=== PATIENT | male | born 1985 | race Caucasian/White ===

== ENCOUNTER 2018-07-10 10:14 | Emergency (ER) | payer OTHER ==
[~2018-07-10] VITALS: Ht 175.3 cm; Wt 83.9 kg
[2018-07-10 10:26] VITALS: BP 118/66
[2018-07-10] MEDS ORDERED: DIPHTH,PERTUSS(ACELL),TET TOX 0.5 ML DISP.SYRIN. VAX IM ONE (11:00)
[2018-07-10] MEDS ORDERED: LIDOCAINE WITH 8.4% SOD BICARB 3 ML DISP.SYRIN. INJ ONE (11:00)
--- NOTE | 2018-07-10 11:14 | RAD ---
Three-view right thumb dated 07/10/2018. No comparison available. Clinical data indication: Pain. Laceration. FINDINGS: 3 views left thumb show soft tissue defect near the MP joint on the radial side. No radiopaque foreign body. Underlying osseous structures are otherwise intact. No periostitis or bone destruction. No evidence of fracture or malalignment. IMPRESSION: Soft tissue laceration with no evidence of underlying acute bony abnormality. Electronically signed by: Anders Vazquez MD (07/10/2018 11:10 AM) [id number]
--- NOTE | 2018-07-10 12:18 | PHYS DOC ---
Past Medical History Past Medical History: No Pertinent History Past Surgical History: No Surgical History Alcohol Use: None Drug Use: None Adult General Chief Complaint Chief Complaint: LACERATION/AVULSION HPI HPI Patient is a 33 year old right handed patient presenting to the ED today with right hand laceration, patient cut his right thumb on sheet metal. Review of Systems Review of Systems Constitutional: Denies fever or chills []what Integument: Right hand laceration Neurologic: Denies headache, focal weakness or sensory changes [] All other systems were reviewed and found to be within normal limits, except as documented in this note. Current Medications Current Medications Current Medications Medications (Trade) Dose Ordered Sig/Maicol Start Time Stop Time Status Last Admin Dose Admin Diphtheria/ Tetanus/Acell Pertussis (Boostrix) 0.5 ml ONCE ONCE 07/10/18 11:00 07/10/18 11:01 DC 07/10/18 11:41 0.5 ML Lidocaine/Sodium Bicarbonate (Buffered Lidocaine 1%) 6 ml 1X ONCE 07/10/18 11:00 07/10/18 11:01 DC 07/10/18 11:39 6 ML Allergies Allergies Allergies Coded Allergies Type Severity Reaction Last Updated Verified Sulfa (Sulfonamide Antibiotics) Allergy Intermediate Hives 07/10/18 Yes Physical Exam Physical Exam Constitutional: Well developed, well nourished, no acute distress, non-toxic appearance. [] Skin: Right lateral thumb at the PIP joint with a laceration approximately 3 cm long with obvious slight tendon cut. Patient is able to flex and extend the finger at the PIP joint. Adequate radius sensation to the right thumb. +2 right radial pulse. Cap refill less than 2 seconds the right thumb. Back: No tenderness, no CVA tenderness. [] Extremities: No tenderness, no cyanosis, no clubbing, ROM intact, no edema. [] Neurologic: Alert and oriented X 3, normal motor function, normal sensory function, no focal deficits noted. [] Psychologic: Affect normal, judgement normal, mood normal. [] Current Patient Data Vital Signs Vital Signs Date Time Temp Pulse Resp B/P (MAP) Pulse Ox O2 Delivery O2 Flow Rate FiO2 07/10/18 10:26 98.8 69 18 118/66 (83) 99 Room Air 98.8 EKG EKG [] Radiology/Procedures Radiology/Procedures Laceration/Wound Repair Wound Location: Right thumb laceration Wound's Depth, Shape: Horizontal Wound Length (cm): Approximately 3 cm Wound Explored: clean Irrigated w/ Saline (ccs): 500 Betadine Prep?: Yes Anesthesia: 1% buffered lidocaine Volume Anesthetic (ccs): Approximately 3 mL Wound Repaired With: Ethilon Suture Size/Type: 5.0/6 interrupted sutures the wound was covered with nonstick dressing Course & Med Decision Making Course & Med Decision Making Pertinent Labs and Imaging studies reviewed. (See chart for details) This is a 33-year-old male patient with right thumb laceration that has not tendon disruption. Talked to patient about following up with a hand surgeon as an outpatient. Provided patient contact information for [facility] hand surgeon. The wound was cleaned thoroughly in the ED, exterior wound was closed as noted in procedures. Patient was started on cephalexin. Tetanus updated. Dragon Disclaimer Dragon Disclaimer This electronic medical record was generated, in whole or in part, using a voice recognition dictation system. Departure Departure Impression: Primary Impression: Laceration of right thumb Disposition: 01 HOME, SELF-CARE Condition: STABLE Referrals: NON,STAFF (PCP) Follow up with [facility] hand surgeon as soon as you can. The phone number is [phone] Patient Instructions: Laceration Care, Adult Additional Instructions: You have right hand laceration with tendon disruption. Follow-up with the provided hand surgeon at [facility]. Take the prescribed antibiotics until completed. Keep the area clean and dry. Monitor the area for any worsening condition including increased redness, warmth, yellow drainage from the area and return to the ED if they occur. Scripts Cephalexin (CEPHALEXIN) 500 Mg Tablet 1 TAB PO QID, #40 TAB Prov: MICHELLE DYER APRN 07/10/18 Problem Qualifiers Primary Impression: Laceration of right thumb Encounter type: initial encounter Damage to nail status: with damage Foreign body presence: without foreign body Qualified Codes: S61.111A - Laceration without foreign body of right thumb with damage to nail, initial encounter MICHELLE DYER APRN Jul 10, 2018 12:18
[2018-07-10] MEDS ORDERED: CEPH500T PO (12:27)
== END 2018-07-10 12:41 | disposition home or self-care (01) ==
LOC: ER 10:14
DX: S61.111A Laceration without foreign body of right thumb with damage to nail, initial encounter (principal); Z88.2 Allergy status to sulfonamides; W26.8XXA Contact with other sharp object(s), not elsewhere classified, initial encounter; Y93.89 Activity, other specified; Y92.89 Other specified places as the place of occurrence of the external cause; Y99.8 Other external cause status
CPT/HCPCS: 12002; 73140; 90471; 90715; 99283